=== PATIENT | female | born 1945 | race Caucasian/White ===

== ENCOUNTER 2017-11-17 08:57 | Emergency (ER) | payer MEDICARE ==
[~2017-11-17] VITALS: Ht 167.6 cm; Wt 76.6 kg
[2017-11-17] MEDS ORDERED: losartan (09:30)
[2017-11-17 10:57] VITALS: BP 188/83
== END 2017-11-17 10:58 | disposition home or self-care (01) ==
LOC: ED 09:39
DX: S46.912A Strain of unspecified muscle, fascia and tendon at shoulder and upper arm level, left arm, initial encounter (principal); S63.502A Unspecified sprain of left wrist, initial encounter; S50.02XA Contusion of left elbow, initial encounter; S80.02XA Contusion of left knee, initial encounter; I10 Essential (primary) hypertension; W19.XXXA Unspecified fall, initial encounter; Y93.89 Activity, other specified; Y99.8 Other external cause status; Y92.009 Unspecified place in unspecified non-institutional (private) residence as the place of occurrence of the external cause
CPT/HCPCS: 71046; 99284

== ENCOUNTER 2019-08-24 06:45 | Outpatient (CLI) | payer MEDICARE ==
[~2019-08-24] VITALS: Ht 167.6 cm; Wt 72.7 kg
[~2019-08-24 06:45] MED LIST: losartan
[2019-08-24] MEDS ORDERED: EPINEPHRINE TOPICAL SOLN 1 MG/ML, 30ML ONE (07:01)
[2019-08-24] MEDS ORDERED: OXYMETAZOLINE NASAL SPRAY 0.05%, 15ML ONE (07:02)
[2019-08-24] MEDS ORDERED: FLUORESCEIN SODIUM 500 MG/5 ML ONE (07:02)
[2019-08-24] MEDS ORDERED: BACITRACIN OINT 500U/GM, 15 GM ONE (07:02)
[2019-08-24] MEDS ORDERED: LACTATED RINGERS 1,000 ML IV SCH (07:20)
[2019-08-24] MEDS ORDERED: LIDOCAINE-MPF 1%, 2ML INFIL ONE (07:30)
[2019-08-24] MEDS ORDERED: LOSA1TAB19 PO (07:30)
[2019-08-24] MEDS ORDERED: CHOL100012 PO (07:30)
[2019-08-24] MEDS ORDERED: VITAMIN C PO (07:30)
[2019-08-24] MEDS ORDERED: VITAMIN E PO (07:30)
[2019-08-24] MEDS ORDERED: BIOT25005 PO (07:30)
[2019-08-24] MEDS ORDERED: MULT-806 PO (07:30)
[2019-08-24 07:33] VITALS: BP 132/76
[2019-08-24 07:59] LABS: ALANINE AMINOTRANSFERASE 19 U/L (12-78); ALBUMIN 3.2 g/dL (3.4-5.0); ANION GAP 7 mmol/L (5-15); CALCIUM 8.4 mg/dL (8.5-10.1); CHLORIDE 112 mmol/L (98-107); CREATININE 0.72 mg/dL (0.55-1.02)
[2019-08-24 08:01] LABS: ALKALINE PHOSPHATASE 86 U/L (45-117); BILIRUBIN,TOTAL 0.5 mg/dL (0.2-1.0); TOTAL PROTEIN 6.8 g/dL (6.4-8.2)
[2019-08-24 08:02] LABS: MICROSCOPIC AUTO
[2019-08-24 08:03] LABS: CULTURE INDICATED? YES
[2019-08-24] MEDS ORDERED: FENTANYL PF 250 MCG/5ML ONE (08:22)
== END 2019-08-24 09:00 | disposition home or self-care (01) ==
LOC: CLISVCS 06:45 → EDSTATUS 08:30 → OUT 09:00 → CLISVCS 09:00
PROVIDERS: ATTEND Otolaryngology
DX: Z01.818 Encounter for other preprocedural examination (principal); J32.4 Chronic pansinusitis; J33.8 Other polyp of sinus
CPT/HCPCS: 36415; 80053; 81001; 87077; 87086; 93005; J7120; 87186; J3010

== ENCOUNTER 2019-08-31 05:52 | Day surgery (SDC) | payer MEDICARE ==
[~2019-08-31] VITALS: Ht 167.6 cm; Wt 73.0 kg
[~2019-08-31 05:52] MED LIST changes: +BIOT25005 PO; +CHOL100012 PO; +LOSA1TAB19 PO; +MULT-806 PO; +VITAMIN C PO; +VITAMIN E PO
[2019-08-31 06:17] VITALS: BP 122/82
[2019-08-31] MEDS ORDERED: LACTATED RINGERS 1,000 ML IV SCH (06:17)
[2019-08-31] MEDS ORDERED: CIPRO PO (06:21)
[2019-08-31] MEDS ORDERED: BACITRACIN OINT 500U/GM, 15 GM ONE (06:33)
[2019-08-31] MEDS ORDERED: OXYMETAZOLINE NASAL SPRAY 0.05%, 15ML ONE (06:33)
[2019-08-31] MEDS ORDERED: FLUORESCEIN SODIUM 500 MG/5 ML ONE (06:33)
[2019-08-31] MEDS ORDERED: EPINEPHRINE TOPICAL SOLN 1 MG/ML, 30ML ONE (06:33)
[2019-08-31] MEDS ORDERED: BACITRACIN 50,000 UNIT ONE (06:34)
[2019-08-31] MEDS ORDERED: LIDOCAINE 1%-EPI 1:100K, 20ML ONE (06:34)
[2019-08-31] MEDS ORDERED: ACETAMINOPHEN 500 MG TABLET ONE (06:58)
[2019-08-31] MEDS ORDERED: MIDAZOLAM 1 MG/ML, 2ML ONE (06:59)
[2019-08-31] MEDS ORDERED: FENTANYL PF 250 MCG/5ML ONE (07:00)
[2019-08-31] MEDS ORDERED: ACETAMINOPHEN 500 MG TABLET PO ONE (07:00)
[2019-08-31] MEDS ORDERED: SUCCINYLCHOLINE 20 MG/ML, 10ML ONE (07:01)
[2019-08-31] MEDS ORDERED: ROCURONIUM 10MG/ML,5ML ONE (07:01)
[2019-08-31] MEDS ORDERED: PROPOFOL 10 MG/ML, 20ML ONE (07:01)
[2019-08-31] MEDS ORDERED: VASOPRESSIN 20 UNIT/ML, 1ML ONE (07:02)
[2019-08-31] MEDS ORDERED: LEVOFLOXACIN/PMX 500MG/100ML 100 ML IV SCH (07:30)
[2019-08-31] MEDS ORDERED: EPHEDRINE 50 MG/ML, 1ML IVPush PRN (08:30)
[2019-08-31] MEDS ORDERED: OXYcodone 5 MG/5 ML ORAL.SOL UDC PO PRN (08:30)
[2019-08-31] MEDS ORDERED: HYDROmorphone 1 MG/ML, 1ML INJ IVPush PRN (08:30)
[2019-08-31] MEDS ORDERED: ONDANSETRON ODT 8 MG PO PRN (08:30)
[2019-08-31] MEDS ORDERED: PROMETHAZINE 25 MG/ML, 1ML IV PRN (08:30)
[2019-08-31] MEDS ORDERED: PROMETHAZINE 12.5 MG SUPP PR PRN (08:30)
[2019-08-31] MEDS ORDERED: HALOPERIDOL 5 MG/ML IV PRN (08:30)
[2019-08-31] MEDS ORDERED: ALBUTEROL SULFATE 2.5 MG/3 ML NPPB PRN (08:30)
[2019-08-31] MEDS ORDERED: hydrALAzine 20 MG/ML, 1ML IV PRN (08:30)
[2019-08-31] MEDS ORDERED: LABETALOL 5MG/ML, 20ML IV PRN (08:30)
[2019-08-31] MEDS ORDERED: ONDANSETRON 2MG/ML, 2ML IV PRN (08:30)
[2019-08-31] MEDS ORDERED: FENTANYL PF 100 MCG/2ML IV PRN (08:30)
[2019-08-31] MEDS ORDERED: MEPERIDINE/PF 25MG/ML,1ML IVPush PRN (08:30)
[2019-08-31] MEDS ORDERED: MIDAZOLAM 1 MG/ML, 2ML IV PRN (08:30)
[2019-08-31] MEDS ORDERED: DIAZEPAM 5 MG/ML, 2ML IVPush PRN (08:30)
[2019-08-31] MEDS ORDERED: ONDANSETRON 2MG/ML, 2ML ONE ×2 (08:59→09:07)
[2019-08-31] MEDS ORDERED: DEXAMETHASONE 4 MG/ML, 1ML ONE ×2 (09:07)
== END 2019-08-31 13:25 | disposition home or self-care (01) ==
LOC: OUT 05:52
PROVIDERS: ATTEND Otolaryngology
DX: J34.2 Deviated nasal septum (principal); J32.0 Chronic maxillary sinusitis; J32.3 Chronic sphenoidal sinusitis; J32.2 Chronic ethmoidal sinusitis; J33.9 Nasal polyp, unspecified; I10 Essential (primary) hypertension; Z88.6 Allergy status to analgesic agent; Z87.440 Personal history of urinary (tract) infections
CPT/HCPCS: 30520; 31259; 31267; 31276; 88305; 88311; 88331; J0330; J1100; J2250; J2405; J2704; J3010; J3490; J7120

== ENCOUNTER → 2020-11-01 | Outpatient (CLI) | payer MEDICARE ==
[~2020-11-01] MED LIST changes: +B CO1TAB14 PO; +CHLO4TAB PO; +CIPRO PO; +COCO1000 PO; +CRAN500T2 PO; +DIPH25CA61 PO; +GARL600T PO; +LOSA50TA14 PO; +Potassium PO; +Vitamin D3 PO; +magnesium PO; +turmeric PO
[2020-11-01 15:28] LABS: ALANINE AMINOTRANSFERASE 21 U/L (12-78); ALBUMIN 3.8 g/dL (3.4-5.0); ANION GAP 6 mmol/L (5-15); CALCIUM 8.6 mg/dL (8.5-10.1); CHLORIDE 108 mmol/L (98-107)
[2020-11-01 15:30] LABS: ALKALINE PHOSPHATASE 105 U/L (45-117); BILIRUBIN,TOTAL 0.3 mg/dL (0.2-1.0); TOTAL PROTEIN 7.7 g/dL (6.4-8.2)
== END | disposition home or self-care (01) ==
LOC: STAR 14:14
PROVIDERS: ATTEND Otolaryngology
DX: Z01.812 Encounter for preprocedural laboratory examination (principal); Z20.822 Contact with and (suspected) exposure to COVID-19; J33.8 Other polyp of sinus; J32.4 Chronic pansinusitis; H90.3 Sensorineural hearing loss, bilateral; J32.0 Chronic maxillary sinusitis; H60.513 Acute actinic otitis externa, bilateral
CPT/HCPCS: 36415; 80053; 93005; U0003

== ENCOUNTER → 2020-11-02 | Outpatient (CLI) | payer MEDICARE | END | disposition home or self-care (01) | LOC: CFH 08:50 | PROVIDERS: ATTEND Otolaryngology | DX: J32.4 Chronic pansinusitis (principal); J32.0 Chronic maxillary sinusitis; J33.8 Other polyp of sinus | CPT/HCPCS: 70486 ==

== ENCOUNTER 2020-11-07 05:42 | Day surgery (SDC) | payer MEDICARE ==
[~2020-11-07] VITALS: Ht 167.6 cm; Wt 75.0 kg
[2020-11-07 06:24] VITALS: BP 136/84
[2020-11-07] MEDS ORDERED: CHLORHEXIDINE 15 ML UDC ONE (06:29)
[2020-11-07] MEDS ORDERED: CHLORHEXIDINE 15 ML UDC PO ONE (06:30)
[2020-11-07] MEDS ORDERED: LACTATED RINGERS 1,000 ML IV SCH (06:30)
[2020-11-07] MEDS ORDERED: EPINEPHRINE TOPICAL SOLN 1 MG/ML, 30ML ONE ×2 (06:52)
[2020-11-07] MEDS ORDERED: LIDOCAINE/PF 1%, 30ML ONE (06:52)
[2020-11-07] MEDS ORDERED: BACITRACIN 50,000 UNIT ONE (06:52)
[2020-11-07] MEDS ORDERED: BACITRACIN OINT 500U/GM, 15 GM ONE (06:52)
[2020-11-07] MEDS ORDERED: FLUORESCEIN SODIUM 500 MG/5 ML ONE (06:52)
[2020-11-07] MEDS ORDERED: OXYMETAZOLINE NASAL SPRAY 0.05%,30ML ONE (06:52)
[2020-11-07] MEDS ORDERED: EPINEPHRINE 1 MG/ML, 1ML ONE (06:53)
[2020-11-07] MEDS ORDERED: FENTANYL PF 250 MCG/5ML ONE (06:59)
[2020-11-07] MEDS ORDERED: PROPOFOL 10 MG/ML, 20ML ONE (06:59)
[2020-11-07] MEDS ORDERED: DEXAMETHASONE 4 MG/ML, 1ML ONE (07:00)
[2020-11-07] MEDS ORDERED: ROCURONIUM 10MG/ML,5ML ONE (07:00)
[2020-11-07] MEDS ORDERED: CEFAZOLIN 1,000 MG ONE (07:47)
[2020-11-07] MEDS ORDERED: EPHEDRINE 50 MG/ML, 1ML ONE (08:05)
[2020-11-07] MEDS ORDERED: LIDOCAINE 1%-EPI 1:100K, 30ML INFIL ONE (08:07)
[2020-11-07] MEDS ORDERED: LABETALOL 5MG/ML, 20ML IV PRN (08:30)
[2020-11-07] MEDS ORDERED: ACETAMINOPHEN 325 MG TABLET PO PRN (08:30)
[2020-11-07] MEDS ORDERED: PROMETHAZINE 25 MG/ML, 1ML IVPush PRN (08:30)
[2020-11-07] MEDS ORDERED: FENTANYL PF 100 MCG/2ML IV PRN (08:30)
[2020-11-07] MEDS ORDERED: ONDANSETRON 2MG/ML, 2ML IVPush PRN (08:30)
[2020-11-07] MEDS ORDERED: HYDROmorphone 1 MG/ML, 1ML INJ IVPush PRN (08:30)
[2020-11-07] MEDS ORDERED: OXYcodone 5 MG/5 ML ORAL.SOL UDC PO PRN (08:30)
[2020-11-07] MEDS ORDERED: hydrALAzine 20 MG/ML, 1ML IV PRN (08:30)
[2020-11-07] MEDS ORDERED: ONDANSETRON 2MG/ML, 2ML ONE (08:36)
== END 2020-11-07 11:10 | disposition home or self-care (01) ==
LOC: OUT 05:42
PROVIDERS: ATTEND Otolaryngology
DX: J32.0 Chronic maxillary sinusitis (principal); J32.4 Chronic pansinusitis; J33.8 Other polyp of sinus; I10 Essential (primary) hypertension; J45.909 Unspecified asthma, uncomplicated; Z79.899 Other long term (current) drug therapy; Z88.8 Allergy status to other drugs, medicaments and biological substances
CPT/HCPCS: 31259; 31267; 31276; 88304; C9122; J0171; J0690; J1100; J2405; J2704; J3010; J7120

== ENCOUNTER 2020-11-14 07:00 | Day surgery (SDC) | payer MEDICARE ==
[~2020-11-14] VITALS: Ht 167.6 cm; Wt 74.8 kg
[2020-11-14 07:50] VITALS: BP 135/83
[2020-11-14] MEDS ORDERED: OXYMETAZOLINE NASAL SPRAY 0.05%,30ML ONE (08:39)
== END 2020-11-14 09:24 | disposition home or self-care (01) ==
LOC: OUT 07:00
PROVIDERS: ATTEND Otolaryngology
DX: J32.0 Chronic maxillary sinusitis (principal); J32.4 Chronic pansinusitis; J33.8 Other polyp of sinus; J32.8 Other chronic sinusitis; Z20.822 Contact with and (suspected) exposure to COVID-19; Z88.8 Allergy status to other drugs, medicaments and biological substances; Z91.018 Allergy to other foods; Z72.89 Other problems related to lifestyle; Z98.890 Other specified postprocedural states; Z79.899 Other long term (current) drug therapy
CPT/HCPCS: 87635

== ENCOUNTER 2021-01-01 20:17 | Emergency (ER) | payer MEDICARE ==
[~2021-01-01] VITALS: Ht 167.6 cm; Wt 76.1 kg
[~2021-01-01 20:17] MED LIST changes: -CRAN500T2 PO; +CRAN500T3 PO
[2021-01-01] MEDS ORDERED: DIPHENHYDRAMINE 25 MG CAPSULE PO ONE (21:00)
[2021-01-01] MEDS ORDERED: FAMOTIDINE 20 MG TABLET PO ONE (21:00)
[2021-01-01] MEDS ORDERED: DIPHENHYDRAMINE 25 MG CAPSULE ONE (21:09)
[2021-01-01] MEDS ORDERED: FAMOTIDINE 20 MG TABLET ONE (21:11)
[2021-01-01] MEDS ORDERED: EPINEPHRINE 1 MG/ML, 1ML ONE (21:29)
[2021-01-01] MEDS ORDERED: EPINEPHRINE 1 MG/ML, 1ML SQ ONE (21:30)
--- NOTE | 2021-01-01 21:53 | NUR ---
PT HERE FOR RASH AROUND WHOLE UPPER BODY, PT HAS HISTORY OF SEASONAL ALLERGIES AND HAS HAD ANAPHYLAXIS FROM IT, PT STATES. PT STATED TAKING 50 MG BENADRYL 1 HOUR AGO WHEN SYMPTOMS STARED. PT MEDICATED PER EMAR, PIV ESTABLISHED, PT ON ALL MONITORS, EKG AT BEDSIDE AT THIS TIME
--- NOTE | 2021-01-01 22:23 | NUR ---
PT'S RASH IS VISABLY GOING AWAY, PT STATES FEELING MUCH BETTER. VSS
[2021-01-01 23:30] VITALS: BP 126/56
== END 2021-01-01 23:49 | disposition home or self-care (01) ==
LOC: ED 21:35
DX: T78.2XXA Anaphylactic shock, unspecified, initial encounter (principal); T78.49XA Other allergy, initial encounter; R21 Rash and other nonspecific skin eruption; R06.02 Shortness of breath; I10 Essential (primary) hypertension; X58.XXXA Exposure to other specified factors, initial encounter
CPT/HCPCS: 71045; 93005; 96372; 99283; J0171; J7512